=== PATIENT | female | born 1990 | race African-American/Black ===

== ENCOUNTER 2016-12-05 09:39 | Emergency (ER) | payer SELFPAY ==
--- NOTE | 2016-12-05 09:43 | Emergency Department Report ---
Chief Complaint: Vaginal Bleeding Stated Complaint: BLEEDING/ABD PAIN Time Seen by Provider: 12/05/16 09:40 - HPI History of Present Illness: PT states she passed a large clot this morning and she has had heavy vaginal bleeding. - ROS Review of Systems: + missed menstrual cycle irregular cycle x months + abd pain + nausea ( on Monday) - vomiting - Exam Physical Exam: pt looks well, non toxic abd soft, + llq abd tenderness MSE screening note: Focused history and physical exam performed. Due to findings the following was ordered: labs, us ED Disposition for MSE Condition: Stable
[2016-12-05 09:45] VITALS: BP 118/71
== END 2016-12-05 09:57 | disposition left against medical advice (07) ==
LOC: ED 09:39
DX: N93.9 Abnormal uterine and vaginal bleeding, unspecified (principal); R11.0 Nausea; R10.32 Left lower quadrant pain; Z53.21 Procedure and treatment not carried out due to patient leaving prior to being seen by health care provider

== ENCOUNTER 2019-10-29 00:02 | Outpatient (CLI) | payer SELFPAY ==
[2019-10-29 00:25] VITALS: BP 113/59
[2019-10-29] MEDS ORDERED: SODIUM CHLORIDE 0.9% 1000 ML 1,000 ML IV ONE (00:40)
[2019-10-29] MEDS ORDERED: LACTATED RINGERS 500 ML IV ONE (01:00)
[2019-10-29 01:36] LABS: Hematocrit 33.4 % (30.3-42.9); Hemoglobin 11.5 gm/dl (10.1-14.3); Mean Corpuscular HGB Conc 34 % (30-34); Mean Corpuscular Volume 94 fl (79-97); Platelet Count 153 K/mm3 (140-440); Red Blood Count 3.55 M/mm3 (3.65-5.03); Red Cell Distribution Width 14.1 % (13.2-15.2)
[2019-10-29 01:51] LABS: Bacteria,Urine 1+ /HPF (Negative); Bilirubin,Urine NEG (Negative); Blood,Urine NEG (Negative); Color,Urine Straw (Yellow); Protein,Urine <15 mg/dL mg/dL (Negative); Urobilinogen,Urine < 2.0 mg/dL (<2.0)
[2019-10-29 02:01] LABS: Alanine Aminotransferase 5 units/L (7-56); BUN/Creatinine Ratio 17; Blood Urea Nitrogen 5 mg/dL (7-17); Calcium 9.1 mg/dL (8.4-10.2)
[2019-10-29 02:02] LABS: Albumin 3.7 g/dL (3.9-5); Hemolysis Index 3
[2019-10-29] MEDS ORDERED: TERBUTALINE 1 MG/1 ML INJ ONE (02:28)
[2019-10-29] MEDS: TERBUTALINE 1 MG/1 ML INJ SUB-Q PRN ×2 (02:29→03:01)
[2019-10-29] MEDS ORDERED: POTASSIUM CHLORIDE ER 20 MEQ TAB PO ONE (02:37)
[2019-10-29] MEDS ORDERED: ONDANSETRON 4 MG/2 ML INJ IV ONE (03:45)
[2019-10-29] MEDS ORDERED: SODIUM CHLORIDE 0.9% 1000 ML 1,000 ML IV SCH (04:00)
--- NOTE | 2019-10-29 05:00 | Ultrasound Report ---
ULTRASOUND BIOPHYSICAL PROFILE INDICATION: well being. COMPARISON: None available. FINDINGS: breathing movement = 2 Gross body movement = 2 tone = 2 Qualitative amniotic fluid volume = 2 Total biophysical score = 8/8 Presentation is Cephalic. heart rate is 152 beats per minute. IMPRESSION: 1. biophysical profile = 8/8 2. There is a 5.4 cm right ovarian cyst. Signer Name: Pedro Wong MD Signed: 10/29/2019 4:55 AM Workstation Name: [id number]
== END 2019-10-29 06:24 | disposition home or self-care (01) ==
LOC: TRG 00:02 → APU 00:03 → TRG 06:24
PROVIDERS: ATTEND Obstetrics & Gynecology
DX: O62.9 Abnormality of forces of labor, unspecified (principal); O21.2 Late vomiting of pregnancy; O99.343 Other mental disorders complicating pregnancy, third trimester; F32.9 Major depressive disorder, single episode, unspecified; O34.83 Maternal care for other abnormalities of pelvic organs, third trimester; N83.201 Unspecified ovarian cyst, right side; Z3A.30 30 weeks gestation of pregnancy
CPT/HCPCS: 36415; 59025; 76819; 80053; 81001; 85027; 96361; 96372; 96374; J2405; J3105; J7030; 96360

== ENCOUNTER 2019-12-19 01:49 | Outpatient (CLI) | payer SELFPAY ==
[2019-12-19 02:04] VITALS: BP 120/58
== END 2019-12-19 02:27 | disposition home or self-care (01) ==
LOC: TRG 01:49
PROVIDERS: ATTEND Obstetrics & Gynecology
DX: O47.1 False labor at or after 37 completed weeks of gestation (principal); Z3A.37 37 weeks gestation of pregnancy
CPT/HCPCS: 59025

== ENCOUNTER 2019-12-22 21:13 | Inpatient (IN) | payer OTHER ==
[2019-12-22] MEDS ORDERED: MINERAL OIL 30 ML ORAL LIQD PO PRN (22:38)
[2019-12-22] MEDS ORDERED: AMPICILLIN/NS 2 GM/100 ML 2 GM/100 ML BAG IV ONE (22:38)
[2019-12-22] MEDS ORDERED: ePHEDrine SULFATE 50 MG/1 ML INJ IV PRN (22:38)
[2019-12-22] MEDS ORDERED: TERBUTALINE 1 MG/1 ML INJ SUB-Q PRN (22:38)
[2019-12-22] MEDS ORDERED: LIDOCAINE (2%) 20 MG/1 ML VIAL 20 ML MDV INFILTRATI ONE (22:48)
--- NOTE | 2019-12-22 22:50 | History and Physical Report ---
History of Present Illness Date of examination: 12/22/19 Date of admission: 12/22/2019 Chief complaint: Leaking of water. History of present illness: 29 year old presents complaining of leaking of clear fluid from vagina since around 8:00 PM tonight. Patient reports active movment. She reports contractions. Patient received care at [facility] and she brings records with her. LMP 03/30/19. EDC 01/04/2020. significant for the following: anemia (supplemented with iron), chlamydia (treated and cured during ), UTI (E. Coli, treated and cured), depression (on Zoloft), bilateral pyelectasis, 5 cm right ovarian cyst. labs are as follows: O+, antibody screen negative, rubella immune, hepatitis B surface antigen negative, HIV negative, RPR nonreactive, gonorrhea negative, chlamydia positive/negative, 1 hour sugar test 121, GBS positive. 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 denies: abnormal PAP smear, gonorrhea, hepatitis B, hepatitis C, herpes, HIV, syphilis, trichomonas Family/Genetic History: diabetes, other (Down Syndrome (paternal cousin)) Social history: , lives with family, full code. denies: smoking, alcohol abuse, prescription drug abuse, IV drug use - Obstetrical History Expected Date of Delivery: 01/04/20 Actual Gestation: 38 Week(s) 2 Day(s) : 2 Para: 1 Hx # Term Pregnancies: 1 Number of Pregnancies: 0 Spontaneous Abortions: 0 Induced : 0 Number of Living Children: 1 Medications and Allergies Allergies Allergy/AdvReac Type Severity Reaction Status Date / Time No Known Allergies Allergy Verified 12/05/16 09:46 Home Medications Medication Instructions Recorded Confirmed Last Taken Type Vit-Fe Fumar-FA [ 1 tab PO DAILY 10/29/19 10/29/19 1 Day Ago History Vitamin] ~10/28/19 Sertraline [Zoloft] 1 tab PO DAILY 10/29/19 10/29/19 1 Day Ago History ~10/28/19 Active Meds: Active Medications Ephedrine Sulfate (Ephedrine Sulfate) 10 mg IV Q2M PRN PRN Reason: Hypotension Fentanyl (Sublimaze) 100 mcg IV Q2H PRN PRN Reason: Pain,Severe (7-10) LABOR PAIN Oxytocin/Sodium Chloride (Pitocin/Ns 20 Unit/1000ml Drip) 20 units in 1,000 mls @ 125 mls/hr IV DIRECT DAVE Oxytocin/Sodium Chloride (Pitocin/Ns 30 Unit/500ml) 30 units in 500 mls @ 1 mls/hr IV TITR DAVE; Protocol Lactated Ringer's (Lactated Ringers) 1,000 mls @ 125 mls/hr IV DIRECT DAVE Ampicillin Sodium (Ampicillin/Ns 2 Gm/100 Ml) 2 gm in 100 mls @ 100 mls/hr IV ONCE ONE; Protocol Stop: 12/22/19 23:37 Ampicillin Sodium (Ampicillin/Ns 1 Gm/50 Ml) 1 gm in 50 mls @ 100 mls/hr IV Q4HR DAVE; Protocol Lidocaine (Xylocaine 2%) 20 ml INFILTRATI ONCE ONE Stop: 12/22/19 22:49 Mineral Oil (Mineral Oil) 30 ml PO QHS PRN PRN Reason: Constipation Terbutaline Sulfate (Brethine) 0.25 mg SUB-Q ONCE PRN PRN Reason: Hyperstimulation/Hypertonicity Review of Systems All systems: negative (leaking of water from vagina and contractions) - Vital Signs Vital signs: Vital Signs Pulse Pulse Ox 77 98 12/22/19 21:43 12/22/19 21:43 Temp Pulse Resp BP Pulse Ox 98.6 F 74 16 125/74 99 12/22/19 21:44 12/22/19 22:43 12/22/19 21:44 12/22/19 21:44 12/22/19 22:43 - Physical Exam Abdomen: Positive: normal appearance, soft. Negative: distention, tenderness, guarding, rigidity Genitourinary (Female): Positive: normal external genitalia, normal perenium. Negative: perineal/vulvar lesions (no lesions noted on careful exam with bright light upon admission) Vagina: Positive: other (+ pooling, + fern test) Uterus: Positive: enlarged. Negative: tender Anus/Rectum: Positive: normal perianal skin Extremities: Positive: normal. Negative: tenderness, edema - Obstetrical FHR: category 1 Uterine Contraction Monitor Mode: External Cervical Dilatation: 1 Cervical Effacement Percentage: 20 station: -3 Uterine Contraction Pattern: Irregular Uterine Contraction Intensity: Mild Results All other labs normal. Assessment and Plan A: at 38 weeks, 1 day gestation. Spontaneous rupture of membranes. GBS positive. P: Admit. EFM. GBS prophylaxis. Pitocin augmentation of labor if needed. Discussed with patient risks and benefits of Pitocin augmentation of labor. Patient consented to Pitocin augmentation of labor.
[2019-12-22] MEDS ORDERED: OXYTOCIN 20 UNIT/1000ML DRIP 20 UNITS/1,000 ML BAG IV SCH (23:00)
[2019-12-22] MEDS: LACTATED RINGERS 1,000 ML IV SCH (23:37)
[2019-12-23 01:46] LABS: Hematocrit 32.8 % (30.3-42.9); Hemoglobin 11.3 gm/dl (10.1-14.3); Mean Corpuscular HGB Conc 34 % (30-34); Mean Corpuscular Volume 92 fl (79-97); Platelet Count 155 K/mm3 (140-440); Red Blood Count 3.55 M/mm3 (3.65-5.03); Red Cell Distribution Width 13.4 % (13.2-15.2)
[2019-12-23] MEDS: OXYTOCIN DRIP 30 UNITS/500 ML BAG IV SCH ×8 (02:00→13:58)
[2019-12-23] MEDS: fentaNYL 100 MCG/2 ML INJ IV PRN ×3 (02:20→15:32)
--- NOTE | 2019-12-23 02:34 | Ultrasound Report ---
ULTRASOUND OBSTETRIC, 12/22/2019 CLINICAL INFORMATION/INDICATION: Evaluate presentation and placental location COMPARISON: Limited obstetrical ultrasound with [facility], 10/29/2019 FINDINGS: There is a single intrauterine . BPD = 8.5 cm = 34 weeks, 2 day(s). Head circumference = 32.3 cm = 36 weeks, 4 day(s). Abdominal circumference = 31.1 cm = 35 weeks, 0 day(s). Femur length = 6.8 cm = 34 weeks, 6 day(s). Overall estimated sonographic age = 35 weeks, 1 day(s). heart rate is 137 beats per minute. Estimated weight is 2582 grams. position is cephalic. Placenta is posterior, fundal and left lateral and grade 2 . The cervix appears closed and measures 3.4 cm Amniotic fluid volume appears decreased measuring 2.9 cm. Impression: 1. Single living intrauterine with estimated sonographic age of 35 weeks, 1 day(s). Signer Name: Adina Enamorado MD Signed: 12/23/2019 2:30 AM Workstation Name: [id number]
[2019-12-23] MEDS: AMPICILLIN/NS 1 GM/50 ML 1 GM/50 ML BAG IV SCH ×4 (04:15→14:00)
--- NOTE | 2019-12-23 04:43 | Event Note ---
Date: 12/23/19 Category 2 FHR tracing noted. No sentinel event. Reviewed FHR tracing for last [address] Barron who also reviewed FHR tracing for past 3 hours. Portions of the tracing are category 2 and portions of the tracing are category 1. Intermittent variable FHR decelerations and a few intermittent late FHR decelerations noted. Minimal to moderate variability. A brief period of mild FHR bradycardia noted. Now FHR baseline is 120 with moderate variability and no decelerations. Patient in in left lateral position. She has KRYSTLE of 2.9 cm. She is having contractions which are about every [address] Barron states OK to continue with labor and no further interventions needed at this time.
[2019-12-23] MEDS: LACTATED RINGERS 1,000 ML IV SCH ×4 (05:56→17:20)
--- NOTE | 2019-12-23 10:10 | Progress Note ---
Assessment and Plan - Patient Problems (1) SROM (spontaneous rupture of membranes) Current Visit: Yes Status: Acute Plan to address problem: Restart Pitocin @ 2mu/min, titrate as tolerated Pain meds as desired Anticipate Subjective - Subjective Date of service: 12/23/19 Principal diagnosis: SROM; 38 wks gestation Interval history: See admission H & P Patient reports: loss of fluid, movement normal, no new complaints, no vaginal bleeding Objective - Vital Signs Vital Signs: Vital Signs - 12hr 12/22/19 12/22/19 12/22/19 22:08 22:13 22:18 Temperature Pulse Rate 84 85 87 Respiratory Rate Blood Pressure Blood Pressure [Right] O2 Sat by Pulse 99 99 99 Oximetry 12/22/19 12/22/19 12/22/19 22:23 22:28 22:33 Temperature Pulse Rate 80 76 75 Respiratory Rate Blood Pressure Blood Pressure [Right] O2 Sat by Pulse 99 99 97 Oximetry 12/22/19 12/22/19 12/22/19 22:38 22:43 22:48 Temperature Pulse Rate 78 74 76 Respiratory Rate Blood Pressure Blood Pressure [Right] O2 Sat by Pulse 98 99 99 Oximetry 12/22/19 12/22/19 12/22/19 23:40 23:49 23:51 Temperature 98.3 F Pulse Rate 66 74 78 Respiratory 18 Rate Blood Pressure 112/56 Blood Pressure 112/56 [Right] O2 Sat by Pulse 98 98 Oximetry 12/22/19 12/23/19 12/23/19 23:56 00:01 00:06 Temperature Pulse Rate 71 80 75 Respiratory Rate Blood Pressure Blood Pressure [Right] O2 Sat by Pulse 99 98 98 Oximetry 12/23/19 12/23/19 12/23/19 00:11 00:16 00:21 Temperature Pulse Rate 74 74 78 Respiratory Rate Blood Pressure Blood Pressure [Right] O2 Sat by Pulse 99 98 98 Oximetry 12/23/19 12/23/19 12/23/19 00:26 00:31 00:37 Temperature Pulse Rate 71 77 60 Respiratory Rate Blood Pressure Blood Pressure [Right] O2 Sat by Pulse 97 98 98 Oximetry 12/23/19 12/23/19 12/23/19 00:42 00:47 00:52 Temperature Pulse Rate 67 74 74 Respiratory Rate Blood Pressure Blood Pressure [Right] O2 Sat by Pulse 98 99 97 Oximetry 12/23/19 12/23/19 12/23/19 00:57 01:02 01:07 Temperature Pulse Rate 74 68 70 Respiratory Rate Blood Pressure Blood Pressure [Right] O2 Sat by Pulse 98 97 97 Oximetry 12/23/19 12/23/19 12/23/19 01:12 01:17 01:22 Temperature Pulse Rate 81 90 73 Respiratory Rate Blood Pressure Blood Pressure [Right] O2 Sat by Pulse 100 100 100 Oximetry 12/23/19 12/23/19 12/23/19 01:27 01:32 01:37 Temperature Pulse Rate 72 65 62 Respiratory Rate Blood Pressure Blood Pressure [Right] O2 Sat by Pulse 100 100 100 Oximetry 12/23/19 12/23/19 12/23/19 01:42 01:47 01:52 Temperature Pulse Rate 67 66 70 Respiratory Rate Blood Pressure Blood Pressure [Right] O2 Sat by Pulse 100 100 100 Oximetry 12/23/19 12/23/19 12/23/19 01:57 02:02 02:10 Temperature Pulse Rate 65 77 80 Respiratory Rate Blood Pressure Blood Pressure [Right] O2 Sat by Pulse 100 100 98 Oximetry 12/23/19 12/23/19 12/23/19 02:15 02:20 02:23 Temperature Pulse Rate 78 77 70 Respiratory Rate Blood Pressure Blood Pressure [Right] O2 Sat by Pulse 97 99 86 Oximetry 12/23/19 12/23/19 12/23/19 02:25 02:30 02:35 Temperature Pulse Rate 80 80 74 Respiratory Rate Blood Pressure Blood Pressure [Right] O2 Sat by Pulse 96 93 94 Oximetry 12/23/19 12/23/19 12/23/19 02:39 02:40 02:45 Temperature Pulse Rate 82 69 72 Respiratory Rate Blood Pressure Blood Pressure [Right] O2 Sat by Pulse 85 99 99 Oximetry 12/23/19 12/23/19 12/23/19 02:50 02:55 03:00 Temperature Pulse Rate 64 62 66 Respiratory Rate Blood Pressure Blood Pressure [Right] O2 Sat by Pulse 99 99 99 Oximetry 12/23/19 12/23/19 12/23/19 03:05 03:10 03:15 Temperature Pulse Rate 65 75 73 Respiratory Rate Blood Pressure Blood Pressure [Right] O2 Sat by Pulse 99 100 99 Oximetry 12/23/19 12/23/19 12/23/19 03:20 03:25 03:30 Temperature Pulse Rate 61 60 60 Respiratory Rate Blood Pressure Blood Pressure [Right] O2 Sat by Pulse 99 99 99 Oximetry 12/23/19 12/23/19 12/23/19 03:35 03:40 03:45 Temperature Pulse Rate 61 61 55 L Respiratory Rate Blood Pressure Blood Pressure [Right] O2 Sat by Pulse 99 100 100 Oximetry 12/23/19 12/23/19 12/23/19 03:50 03:55 04:00 Temperature Pulse Rate 58 L 56 L 54 L Respiratory Rate Blood Pressure Blood Pressure [Right] O2 Sat by Pulse 100 100 100 Oximetry 12/23/19 12/23/19 12/23/19 04:05 04:10 04:15 Temperature Pulse Rate 54 L 54 L 66 Respiratory Rate Blood Pressure Blood Pressure [Right] O2 Sat by Pulse 100 100 100 Oximetry 12/23/19 12/23/19 12/23/19 04:20 04:25 04:30 Temperature Pulse Rate 67 56 L 53 L Respiratory Rate Blood Pressure Blood Pressure [Right] O2 Sat by Pulse 99 98 97 Oximetry 12/23/19 12/23/19 12/23/19 04:35 04:36 04:42 Temperature Pulse Rate 54 L 53 L 71 Respiratory Rate Blood Pressure 121/68 Blood Pressure [Right] O2 Sat by Pulse 100 98 Oximetry 12/23/19 12/23/19 12/23/19 04:47 04:52 04:57 Temperature 97.8 F Pulse Rate 67 58 L 68 Respiratory 16 Rate Blood Pressure Blood Pressure 121/86 [Right] O2 Sat by Pulse 98 100 100 Oximetry 12/23/19 12/23/19 12/23/19 05:02 05:07 05:12 Temperature Pulse Rate 74 81 77 Respiratory Rate Blood Pressure Blood Pressure [Right] O2 Sat by Pulse 100 100 100 Oximetry 12/23/19 12/23/19 12/23/19 05:17 05:22 05:27 Temperature Pulse Rate 62 60 74 Respiratory Rate Blood Pressure Blood Pressure [Right] O2 Sat by Pulse 100 100 100 Oximetry 12/23/19 12/23/19 12/23/19 05:32 05:37 05:42 Temperature Pulse Rate 77 71 76 Respiratory Rate Blood Pressure Blood Pressure [Right] O2 Sat by Pulse 100 100 100 Oximetry 08/24/20 08/24/20 08/24/20 05:52 05:57 06:02 Temperature Pulse Rate 68 64 68 Respiratory Rate Blood Pressure Blood Pressure [Right] O2 Sat by Pulse 100 100 100 Oximetry 12/23/19 12/23/19 12/23/19 06:07 06:12 06:17 Temperature Pulse Rate 56 L 60 59 L Respiratory Rate Blood Pressure Blood Pressure [Right] O2 Sat by Pulse 100 100 100 Oximetry 12/23/19 12/23/19 12/23/19 06:22 06:27 06:32 Temperature Pulse Rate 60 63 66 Respiratory Rate Blood Pressure Blood Pressure [Right] O2 Sat by Pulse 100 100 100 Oximetry 12/23/19 12/23/19 12/23/19 06:37 06:42 06:47 Temperature Pulse Rate 54 L 62 65 Respiratory Rate Blood Pressure 111/61 Blood Pressure [Right] O2 Sat by Pulse 100 100 100 Oximetry 12/23/19 12/23/19 12/23/19 06:52 06:57 07:02 Temperature Pulse Rate 55 L 57 L 56 L Respiratory Rate Blood Pressure Blood Pressure [Right] O2 Sat by Pulse 100 100 100 Oximetry 12/23/19 12/23/19 12/23/19 07:07 07:12 07:15 Temperature 97.8 F Pulse Rate 57 L 61 56 L Respiratory 17 Rate Blood Pressure 123/76 Blood Pressure 123/76 [Right] O2 Sat by Pulse 100 100 100 Oximetry 12/23/19 12/23/19 12/23/19 07:17 07:22 07:27 Temperature Pulse Rate 74 62 63 Respiratory Rate Blood Pressure Blood Pressure [Right] O2 Sat by Pulse 100 100 100 Oximetry 12/23/19 12/23/19 12/23/19 07:32 07:37 07:42 Temperature Pulse Rate 56 L 54 L 56 L Respiratory Rate Blood Pressure Blood Pressure [Right] O2 Sat by Pulse 100 100 100 Oximetry 12/23/19 12/23/19 12/23/19 07:47 07:52 07:57 Temperature Pulse Rate 57 L 67 61 Respiratory Rate Blood Pressure 116/65 Blood Pressure [Right] O2 Sat by Pulse 100 100 100 Oximetry 12/23/19 12/23/19 12/23/19 08:02 08:07 08:12 Temperature Pulse Rate 63 60 63 Respiratory Rate Blood Pressure Blood Pressure [Right] O2 Sat by Pulse 100 99 99 Oximetry 12/23/19 12/23/19 12/23/19 08:17 08:22 08:27 Temperature Pulse Rate 67 62 55 L Respiratory Rate Blood Pressure Blood Pressure [Right] O2 Sat by Pulse 99 100 100 Oximetry 12/23/19 12/23/19 12/23/19 08:32 08:37 08:42 Temperature Pulse Rate 61 64 55 L Respiratory Rate Blood Pressure Blood Pressure [Right] O2 Sat by Pulse 100 100 100 Oximetry 12/23/19 12/23/19 12/23/19 08:47 08:52 08:57 Temperature Pulse Rate 53 L 59 L 58 L Respiratory Rate Blood Pressure 104/59 Blood Pressure [Right] O2 Sat by Pulse 100 100 100 Oximetry 12/23/19 12/23/19 12/23/19 09:02 09:07 09:12 Temperature Pulse Rate 55 L 57 L 64 Respiratory Rate Blood Pressure Blood Pressure [Right] O2 Sat by Pulse 100 100 100 Oximetry 12/23/19 12/23/19 12/23/19 09:17 09:22 09:33 Temperature Pulse Rate 57 L 66 62 Respiratory Rate Blood Pressure Blood Pressure [Right] O2 Sat by Pulse 100 99 100 Oximetry 12/23/19 12/23/19 12/23/19 09:34 09:38 09:43 Temperature Pulse Rate 71 66 69 Respiratory Rate Blood Pressure 98/55 Blood Pressure [Right] O2 Sat by Pulse 100 100 Oximetry 12/23/19 12/23/19 12/23/19 09:48 09:49 09:53 Temperature Pulse Rate 62 59 L 66 Respiratory Rate Blood Pressure 116/55 Blood Pressure [Right] O2 Sat by Pulse 100 100 Oximetry 12/23/19 12/23/19 12/23/19 09:55 09:58 10:03 Temperature Pulse Rate 71 68 69 Respiratory Rate Blood Pressure 100/56 Blood Pressure [Right] O2 Sat by Pulse 100 100 Oximetry - Exam Breasts: deferred Cardiovascular: Regular rate Lungs: Normal air movement FHR: category 1 Uterine Contraction Monitor Mode: External Cervical Dilatation: 2 (per RN) Cervical Effacement Percentage: 50 (Pitocin restarted at 2mu/min) station: -3 Uterine Contraction Frequency (min): 5-7 Uterine Contraction Pattern: Irregular Uterine Tone Measurement Phase: Resting Uterine Contraction Intensity: Mild - Labs Labs: Abnormal Labs 12/23/19 00:43 RBC 3.55 L Laboratory Results - last 24 hr 12/23/19 12/23/19 00:43 Unknown WBC 7.7 RBC 3.55 L Hgb 11.3 Hct 32.8 MCV 92 MCH 32 MCHC 34 RDW 13.4 Plt Count 155 Blood Type O POSITIVE Antibody Screen Negative
[2019-12-23] MEDS ORDERED: DEXMEDETOMIDINE 200 MCG/2 ML VIAL IV ONE (16:36)
--- NOTE | 2019-12-23 16:53 | Anesthesia Day of Surgery ---
Anesthesia Day of Surgery - Day of Surgery Patient Examined: Yes Patient H&P Reviewed: Yes
--- NOTE | 2019-12-23 16:53 | Anesthesia Consultation ---
Anesthesia Consult and Med Hx Date of service: 12/23/19 - Airway Anesthetic Teeth Evaluation: Good ROM Head & Neck: Adequate Mental/Hyoid Distance: Adequate Mallampati Class: Class II Intubation Access Assessment: Good - Pulmonary Exam CTA: Yes - Cardiac Exam Cardiac Exam: RRR - Pre-Operative Health Status ASA Pre-Surgery Classification: ASA2, Emergency Proposed Anesthetic Plan: Epidural - Pulmonary Hx Asthma: No COPD: No Hx Pneumonia: No - Cardiovascular System Hx Hypertension: No - Central Nervous System Hx Seizures: No Hx Psychiatric Problems: Yes (DEPRESSION ON MEDS) - Endocrine Hx Renal Disease: Yes (UTI E. COLI 09/22) Hx End Stage Renal Disease: No Hx Hypothyroidism: No Hx Hyperthyroidism: No - Hematic Hx Anemia: Yes Hx Sickle Cell Disease: No - Other Systems Hx Alcohol Use: No
[2019-12-23] MEDS ORDERED: ePHEDrine SULFATE 50 MG/1 ML INJ IV PRN (16:57)
[2019-12-23] MEDS ORDERED: NALOXONE 2 MG/2 ML INJ IV PRN (16:57)
[2019-12-23] MEDS ORDERED: fentaNYL-BUPIV 2 MCG/ML-0.125% 200 MCG/100 ML BAG EPIDURAL SCH (17:00)
--- NOTE | 2019-12-23 17:12 | Progress Note ---
Assessment and Plan - Patient Problems (1) SROM (spontaneous rupture of membranes) Current Visit: Yes Status: Acute Plan to address problem: Continue Pitocin as tolerated Anticipate Subjective - Subjective Date of service: 12/23/19 Principal diagnosis: SROM; 38 wks gestation Interval history: See admission H & P Patient reports: loss of fluid, vaginal bleeding (some bloody show ), movement normal, contractions (better with epidural), no new complaints Objective - Vital Signs Vital Signs: Vital Signs - 12hr 12/23/19 12/23/19 12/23/19 05:07 05:12 05:17 Temperature Pulse Rate 81 77 62 Respiratory Rate Blood Pressure Blood Pressure [Right] O2 Sat by Pulse 100 100 100 Oximetry 12/23/19 12/23/19 12/23/19 05:22 05:27 05:32 Temperature Pulse Rate 60 74 77 Respiratory Rate Blood Pressure Blood Pressure [Right] O2 Sat by Pulse 100 100 100 Oximetry 12/23/19 12/23/19 12/23/19 05:37 05:42 05:52 Temperature Pulse Rate 71 76 68 Respiratory Rate Blood Pressure Blood Pressure [Right] O2 Sat by Pulse 100 100 100 Oximetry 12/23/19 12/23/19 12/23/19 05:57 06:02 06:07 Temperature Pulse Rate 64 68 56 L Respiratory Rate Blood Pressure Blood Pressure [Right] O2 Sat by Pulse 100 100 100 Oximetry 12/23/19 12/23/19 12/23/19 06:12 06:17 06:22 Temperature Pulse Rate 60 59 L 60 Respiratory Rate Blood Pressure Blood Pressure [Right] O2 Sat by Pulse 100 100 100 Oximetry 12/23/19 12/23/19 12/23/19 06:27 06:32 06:37 Temperature Pulse Rate 63 66 54 L Respiratory Rate Blood Pressure Blood Pressure [Right] O2 Sat by Pulse 100 100 100 Oximetry 12/23/19 12/23/19 12/23/19 06:42 06:47 06:52 Temperature Pulse Rate 62 65 55 L Respiratory Rate Blood Pressure 111/61 Blood Pressure [Right] O2 Sat by Pulse 100 100 100 Oximetry 12/23/19 12/23/19 12/23/19 06:57 07:02 07:07 Temperature Pulse Rate 57 L 56 L 57 L Respiratory Rate Blood Pressure Blood Pressure [Right] O2 Sat by Pulse 100 100 100 Oximetry 12/23/19 12/23/19 12/23/19 07:12 07:15 07:17 Temperature 97.8 F Pulse Rate 61 56 L 74 Respiratory 17 Rate Blood Pressure 123/76 Blood Pressure 123/76 [Right] O2 Sat by Pulse 100 100 100 Oximetry 12/23/19 12/23/19 12/23/19 07:22 07:27 07:32 Temperature Pulse Rate 62 63 56 L Respiratory Rate Blood Pressure Blood Pressure [Right] O2 Sat by Pulse 100 100 100 Oximetry 12/23/19 12/23/19 12/23/19 07:37 07:42 07:47 Temperature Pulse Rate 54 L 56 L 57 L Respiratory Rate Blood Pressure 116/65 Blood Pressure [Right] O2 Sat by Pulse 100 100 100 Oximetry 12/23/19 12/23/19 12/23/19 07:52 07:57 08:02 Temperature Pulse Rate 67 61 63 Respiratory Rate Blood Pressure Blood Pressure [Right] O2 Sat by Pulse 100 100 100 Oximetry 12/23/19 12/23/19 12/23/19 08:07 08:12 08:17 Temperature Pulse Rate 60 63 67 Respiratory Rate Blood Pressure Blood Pressure [Right] O2 Sat by Pulse 99 99 99 Oximetry 12/23/19 12/23/19 12/23/19 08:22 08:27 08:32 Temperature Pulse Rate 62 55 L 61 Respiratory Rate Blood Pressure Blood Pressure [Right] O2 Sat by Pulse 100 100 100 Oximetry 12/23/19 12/23/19 12/23/19 08:37 08:42 08:47 Temperature Pulse Rate 64 55 L 53 L Respiratory Rate Blood Pressure 104/59 Blood Pressure [Right] O2 Sat by Pulse 100 100 100 Oximetry 12/23/19 12/23/19 12/23/19 08:52 08:57 09:02 Temperature Pulse Rate 59 L 58 L 55 L Respiratory Rate Blood Pressure Blood Pressure [Right] O2 Sat by Pulse 100 100 100 Oximetry 12/23/19 12/23/19 12/23/19 09:07 09:12 09:17 Temperature Pulse Rate 57 L 64 57 L Respiratory Rate Blood Pressure Blood Pressure [Right] O2 Sat by Pulse 100 100 100 Oximetry 12/23/19 12/23/19 12/23/19 09:22 09:33 09:34 Temperature Pulse Rate 66 62 71 Respiratory Rate Blood Pressure 98/55 Blood Pressure [Right] O2 Sat by Pulse 99 100 Oximetry 12/23/19 12/23/19 12/23/19 09:38 09:43 09:48 Temperature Pulse Rate 66 69 62 Respiratory Rate Blood Pressure Blood Pressure [Right] O2 Sat by Pulse 100 100 100 Oximetry 12/23/19 12/23/19 12/23/19 09:49 09:53 09:55 Temperature Pulse Rate 59 L 66 71 Respiratory Rate Blood Pressure 116/55 100/56 Blood Pressure [Right] O2 Sat by Pulse 100 Oximetry 12/23/19 12/23/19 12/23/19 09:58 10:03 10:08 Temperature Pulse Rate 68 69 68 Respiratory Rate Blood Pressure Blood Pressure [Right] O2 Sat by Pulse 100 100 100 Oximetry 12/23/19 12/23/19 12/23/19 10:13 10:18 10:23 Temperature Pulse Rate 63 66 70 Respiratory Rate Blood Pressure Blood Pressure [Right] O2 Sat by Pulse 100 100 100 Oximetry 12/23/19 12/23/19 12/23/19 10:26 10:28 10:33 Temperature Pulse Rate 75 76 74 Respiratory Rate Blood Pressure 114/64 Blood Pressure [Right] O2 Sat by Pulse 98 100 Oximetry 12/23/19 12/23/19 12/23/19 10:38 10:43 10:48 Temperature Pulse Rate 72 64 64 Respiratory Rate Blood Pressure Blood Pressure [Right] O2 Sat by Pulse 100 100 100 Oximetry 12/23/19 12/23/19 12/23/19 10:53 10:56 10:58 Temperature Pulse Rate 64 63 64 Respiratory Rate Blood Pressure 104/55 Blood Pressure [Right] O2 Sat by Pulse 100 100 Oximetry 12/23/19 12/23/19 12/23/19 11:03 11:07 11:08 Temperature Pulse Rate 69 68 68 Respiratory Rate Blood Pressure 108/60 Blood Pressure [Right] O2 Sat by Pulse 100 100 Oximetry 12/23/19 12/23/19 12/23/19 11:13 11:18 11:23 Temperature Pulse Rate 65 71 69 Respiratory Rate Blood Pressure Blood Pressure [Right] O2 Sat by Pulse 100 100 100 Oximetry 12/23/19 12/23/19 12/23/19 11:25 11:28 11:33 Temperature Pulse Rate 86 70 66 Respiratory Rate Blood Pressure 108/54 Blood Pressure [Right] O2 Sat by Pulse 100 100 Oximetry 12/23/19 12/23/19 12/23/19 11:38 11:45 11:50 Temperature Pulse Rate 72 71 67 Respiratory Rate Blood Pressure Blood Pressure [Right] O2 Sat by Pulse 100 100 100 Oximetry 12/23/19 12/23/19 12/23/19 11:55 12:00 12:05 Temperature Pulse Rate 68 66 66 Respiratory Rate Blood Pressure 111/68 Blood Pressure [Right] O2 Sat by Pulse 99 98 99 Oximetry 12/23/19 12/23/19 12/23/19 12:10 12:15 12:20 Temperature Pulse Rate 67 64 64 Respiratory Rate Blood Pressure Blood Pressure [Right] O2 Sat by Pulse 98 99 98 Oximetry 12/23/19 12/23/19 12/23/19 12:25 12:30 12:35 Temperature Pulse Rate 78 64 58 L Respiratory Rate Blood Pressure 119/66 Blood Pressure [Right] O2 Sat by Pulse 99 98 99 Oximetry 12/23/19 12/23/19 12/23/19 12:40 12:45 12:50 Temperature Pulse Rate 67 81 77 Respiratory Rate Blood Pressure Blood Pressure [Right] O2 Sat by Pulse 99 97 97 Oximetry 12/23/19 12/23/19 12/23/19 12:55 12:57 13:00 Temperature Pulse Rate 70 66 64 Respiratory Rate Blood Pressure 111/65 Blood Pressure [Right] O2 Sat by Pulse 98 99 Oximetry 12/23/19 12/23/19 12/23/19 13:04 13:05 13:14 Temperature 98.2 F Pulse Rate 62 58 L 63 Respiratory 17 Rate Blood Pressure Blood Pressure 111/65 [Right] O2 Sat by Pulse 99 98 100 Oximetry 12/23/19 12/23/19 12/23/19 13:19 13:21 13:24 Temperature Pulse Rate 71 58 L 63 Respiratory Rate Blood Pressure 113/69 Blood Pressure [Right] O2 Sat by Pulse 100 100 Oximetry 12/23/19 12/23/19 12/23/19 13:25 13:29 13:34 Temperature Pulse Rate 67 62 63 Respiratory Rate Blood Pressure 117/72 Blood Pressure [Right] O2 Sat by Pulse 100 100 Oximetry 12/23/19 12/23/19 12/23/19 13:36 13:39 13:44 Temperature Pulse Rate 64 59 L Respiratory 16 Rate Blood Pressure Blood Pressure [Right] O2 Sat by Pulse 100 100 Oximetry 12/23/19 12/23/19 12/23/19 13:49 13:54 13:55 Temperature Pulse Rate 66 61 56 L Respiratory Rate Blood Pressure 119/69 Blood Pressure [Right] O2 Sat by Pulse 100 99 Oximetry 12/23/19 12/23/19 12/23/19 13:59 14:04 14:09 Temperature Pulse Rate 57 L 59 L 61 Respiratory Rate Blood Pressure Blood Pressure [Right] O2 Sat by Pulse 100 100 100 Oximetry 12/23/19 12/23/19 12/23/19 14:14 14:19 14:24 Temperature Pulse Rate 54 L 52 L 61 Respiratory Rate Blood Pressure Blood Pressure [Right] O2 Sat by Pulse 100 100 100 Oximetry 12/23/19 12/23/19 12/23/19 14:26 14:29 14:34 Temperature Pulse Rate 54 L 53 L 52 L Respiratory Rate Blood Pressure 135/74 Blood Pressure [Right] O2 Sat by Pulse 100 100 Oximetry 12/23/19 12/23/19 12/23/19 14:39 14:44 14:49 Temperature Pulse Rate 68 60 65 Respiratory Rate Blood Pressure Blood Pressure [Right] O2 Sat by Pulse 100 100 100 Oximetry 12/23/19 12/23/19 12/23/19 14:55 15:17 15:22 Temperature Pulse Rate 57 L 79 87 Respiratory Rate Blood Pressure 129/60 Blood Pressure [Right] O2 Sat by Pulse 100 100 Oximetry 12/23/19 12/23/19 12/23/19 15:26 15:27 15:32 Temperature Pulse Rate 78 57 L 64 Respiratory 16 Rate Blood Pressure 161/88 Blood Pressure [Right] O2 Sat by Pulse 100 100 Oximetry 12/23/19 12/23/19 12/23/19 15:37 15:42 15:47 Temperature Pulse Rate 76 70 58 L Respiratory Rate Blood Pressure Blood Pressure [Right] O2 Sat by Pulse 97 99 97 Oximetry 12/23/19 12/23/19 12/23/19 15:52 15:55 15:57 Temperature Pulse Rate 76 70 63 Respiratory Rate Blood Pressure 115/56 Blood Pressure [Right] O2 Sat by Pulse 100 100 Oximetry 12/23/19 12/23/19 12/23/19 16:02 16:07 16:12 Temperature Pulse Rate 63 64 84 Respiratory Rate Blood Pressure Blood Pressure [Right] O2 Sat by Pulse 99 99 99 Oximetry 12/23/19 12/23/19 12/23/19 16:17 16:22 16:25 Temperature Pulse Rate 76 87 83 Respiratory Rate Blood Pressure 141/70 Blood Pressure [Right] O2 Sat by Pulse 99 99 Oximetry 12/23/19 12/23/19 12/23/19 16:27 16:32 16:34 Temperature Pulse Rate 59 L 74 72 Respiratory Rate Blood Pressure Blood Pressure [Right] O2 Sat by Pulse 99 100 79 L Oximetry 12/23/19 12/23/19 12/23/19 16:37 16:42 16:45 Temperature Pulse Rate 65 63 59 L Respiratory Rate Blood Pressure 128/76 Blood Pressure [Right] O2 Sat by Pulse 96 98 Oximetry 12/23/19 12/23/19 12/23/19 16:47 16:48 16:50 Temperature Pulse Rate 63 62 75 Respiratory Rate Blood Pressure 141/75 126/60 Blood Pressure [Right] O2 Sat by Pulse 99 Oximetry 12/23/19 12/23/19 12/23/19 16:51 16:52 16:53 Temperature Pulse Rate 59 L 62 57 L Respiratory Rate Blood Pressure 127/56 127/60 Blood Pressure [Right] O2 Sat by Pulse 100 Oximetry 12/23/19 12/23/19 12/23/19 16:55 16:57 16:59 Temperature Pulse Rate 53 L 68 76 Respiratory Rate Blood Pressure 126/62 142/68 130/65 Blood Pressure [Right] O2 Sat by Pulse 100 Oximetry 12/23/19 17:02 Temperature Pulse Rate 64 Respiratory Rate Blood Pressure Blood Pressure [Right] O2 Sat by Pulse 97 Oximetry - Exam Breasts: deferred Cardiovascular: Regular rate Lungs: Normal air movement FHR: category 1 Uterine Contraction Monitor Mode: External Cervical Dilatation: 9 (vertex) Cervical Effacement Percentage: 90 station: +1 Uterine Contraction Frequency (min): 2-3 Uterine Contraction Pattern: Irregular Uterine Tone Measurement Phase: Resting Uterine Contraction Intensity: Strong/Firm - Labs Labs: Abnormal Labs 12/23/19 00:43 RBC 3.55 L Laboratory Results - last 24 hr 12/23/19 12/23/19 00:43 Unknown WBC 7.7 RBC 3.55 L Hgb 11.3 Hct 32.8 MCV 92 MCH 32 MCHC 34 RDW 13.4 Plt Count 155 Blood Type O POSITIVE Antibody Screen Negative
--- NOTE | 2019-12-23 18:14 | Procedure Note ---
OB Delivery Note - Delivery Date of Delivery: 12/23/19 Surgeon: JUN ALDRIDGE JR Estimated blood loss: 200cc - Vaginal Delivery presentation: vertex Delivery position: OA Intrapartum events: none Delivery induction: oxytocin Delivery augmentation: pitocin Delivery monitor: external FHT Route of delivery: Delivery placenta: spontaneous Delivery cord: nuchal cord Episiotomy: none Delivery laceration: 1st degree, vaginal side wall Delivery repair: other (perineal and bilateral abrasions only, not repaired) Anesthesia: epidural Delivery comments: , 200cc viable, crying boy, 8/9 APGARS, 2380g. Nuchal x 1. Perineal and bilateral labial abrasions only, not reparied. To with mom. No immediately complications. - A at 1 minute: 8 at 5 minutes: 9 Infant Gender: Male
[2019-12-23] MEDS ORDERED: MAGNESIUM HYDROXIDE (MOM) ORAL LIQD UDC PO PRN (18:15)
[2019-12-23] MEDS ORDERED: LANOLIN/ZINC/DIMETHICONE (LANSINOH) 7 GM TP PRN (18:15)
[2019-12-23] MEDS ORDERED: PROMETHAZINE 25 MG RECT SUPP PR PRN (18:15)
[2019-12-23] MEDS ORDERED: diphenhydrAMINE 25 MG CAP PO PRN (18:15)
[2019-12-23] MEDS ORDERED: ACETAMINOPHEN 325 MG TAB PO PRN (18:15)
[2019-12-23] MEDS ORDERED: WITCH HAZEL/ GLYCERIN PAD TP PRN (18:15)
[2019-12-23] MEDS ORDERED: oxyCODONE /ACETAMINOPHEN 5-325MG TAB PO PRN (18:15)
[2019-12-23] MEDS ORDERED: ONDANSETRON 4 MG/2 ML INJ IV PRN (18:15)
[2019-12-23] MEDS ORDERED: PROMETHAZINE 25 MG TAB PO PRN (18:15)
[2019-12-23] MEDS: IBUPROFEN 600 MG TAB PO SCH (20:07)
[2019-12-24] MEDS: IBUPROFEN 600 MG TAB PO SCH ×3 (04:09→17:11)
[2019-12-24 06:30] LABS: Hematocrit 29.9 % (30.3-42.9); Hemoglobin 10.5 gm/dl (10.1-14.3)
--- NOTE | 2019-12-24 10:53 | Progress Note ---
Assessment and Plan - Patient Problems (1) Status post normal vaginal delivery Current Visit: Yes Status: Acute Plan to address problem: Continue routine PP orders Anticipate d/c home tomorrow F/U at office in 6 wks for routine PP visit (2) Anemia Current Visit: Yes Status: Acute Qualifiers: Anemia type: other cause Other causes of anemia: acute posthemorrhagic Qualified Code(s): D62 - Acute posthemorrhagic anemia Plan to address problem: Asymptomatic Increase iron rich foods into diet Subjective - Subjective Date of service: 12/24/19 Principal diagnosis: S/P ; Anemia Interval history: See admission H & P Patient reports: appetite normal, voiding normally, pain well controlled, flatus, ambulating normally : doing well, bottle feeding Objective - Vital Signs Latest vital signs: Vital Signs Temp Pulse Resp BP BP Pulse Ox 12/24/19 07:34 99.2 F 88 18 102/51 97 12/24/19 05:51 98.7 F 77 20 95/53 97 12/24/19 04:09 20 12/23/19 20:50 97.5 F L 53 L 18 108/64 100 12/23/19 20:01 57 L 100 12/23/19 19:56 71 100 12/23/19 19:55 52 L 122/73 12/23/19 19:51 50 L 100 12/23/19 19:46 54 L 100 12/23/19 19:41 75 121/84 100 12/23/19 19:35 67 100 12/23/19 19:30 51 L 100 12/23/19 19:25 46 L 100 12/23/19 19:20 60 100 12/23/19 19:15 52 L 100 12/23/19 19:10 50 L 114/78 99 12/23/19 19:05 97.8 F 51 L 17 100 12/23/19 19:00 47 L 97 12/23/19 18:55 56 L 109/72 99 12/23/19 18:50 52 L 100 12/23/19 18:45 50 L 100 12/23/19 18:40 51 L 16 112/67 112/67 100 12/23/19 18:35 53 L 99 12/23/19 18:30 49 L 98 12/23/19 18:25 54 L 16 105/62 105/62 99 12/23/19 18:20 59 L 98 12/23/19 18:15 53 L 99 12/23/19 18:10 97.8 F 52 L 16 104/56 104/56 99 12/23/19 18:05 54 L 111/54 12/23/19 18:01 58 L 116/66 12/23/19 17:55 57 L 113/64 12/23/19 17:52 72 100 12/23/19 17:50 67 112/63 12/23/19 17:47 54 L 100 12/23/19 17:45 55 L 117/66 12/23/19 17:42 52 L 100 12/23/19 17:39 49 L 115/69 12/23/19 17:37 51 L 119/68 99 12/23/19 17:35 47 L 120/66 12/23/19 17:33 51 L 123/64 12/23/19 17:32 54 L 100 12/23/19 17:31 52 L 125/64 12/23/19 17:29 49 L 121/58 12/23/19 17:27 53 L 125/63 100 12/23/19 17:25 50 L 125/63 12/23/19 17:23 51 L 120/64 12/23/19 17:22 68 100 12/23/19 17:21 55 L 122/65 12/23/19 17:19 53 L 124/76 12/23/19 17:17 57 L 125/75 100 12/23/19 17:15 58 L 128/74 12/23/19 17:13 56 L 132/71 12/23/19 17:12 58 L 100 12/23/19 17:11 57 L 116/64 12/23/19 17:10 55 L 123/71 12/23/19 17:07 55 L 100 12/23/19 17:02 64 97 12/23/19 16:59 76 130/65 12/23/19 16:57 68 142/68 100 12/23/19 16:55 53 L 126/62 12/23/19 16:53 57 L 127/60 12/23/19 16:52 62 100 12/23/19 16:51 59 L 127/56 12/23/19 16:50 75 126/60 12/23/19 16:48 62 141/75 12/23/19 16:47 63 99 12/23/19 16:45 59 L 128/76 12/23/19 16:42 63 98 12/23/19 16:37 65 96 12/23/19 16:34 72 79 L 12/23/19 16:32 74 100 12/23/19 16:27 59 L 99 12/23/19 16:25 83 141/70 12/23/19 16:22 87 99 12/23/19 16:17 76 99 12/23/19 16:12 84 99 12/23/19 16:07 64 99 12/23/19 16:02 63 99 12/23/19 15:57 63 100 12/23/19 15:55 70 115/56 12/23/19 15:52 76 100 12/23/19 15:47 58 L 97 12/23/19 15:42 70 99 12/23/19 15:37 76 97 12/23/19 15:32 64 16 100 12/23/19 15:27 57 L 100 12/23/19 15:26 78 161/88 12/23/19 15:22 87 100 12/23/19 15:17 79 100 12/23/19 14:55 57 L 129/60 12/23/19 14:49 65 100 12/23/19 14:44 60 100 12/23/19 14:39 68 100 12/23/19 14:34 52 L 100 12/23/19 14:29 53 L 100 12/23/19 14:26 54 L 135/74 12/23/19 14:24 61 100 12/23/19 14:19 52 L 100 12/23/19 14:14 54 L 100 12/23/19 14:09 61 100 12/23/19 14:04 59 L 100 12/23/19 13:59 57 L 100 12/23/19 13:55 56 L 119/69 12/23/19 13:54 61 99 12/23/19 13:49 66 100 12/23/19 13:44 59 L 100 12/23/19 13:39 64 100 12/23/19 13:36 16 12/23/19 13:34 63 100 12/23/19 13:29 62 100 12/23/19 13:25 67 117/72 08/24/20 13:24 63 100 12/23/19 13:21 58 L 113/69 12/23/19 13:19 71 100 12/23/19 13:14 63 100 12/23/19 13:05 58 L 98 12/23/19 13:04 98.2 F 62 17 111/65 99 12/23/19 13:00 64 99 12/23/19 12:57 66 111/65 12/23/19 12:55 70 98 12/23/19 12:50 77 97 12/23/19 12:45 81 97 12/23/19 12:40 67 99 12/23/19 12:35 58 L 99 12/23/19 12:30 64 98 12/23/19 12:25 78 119/66 99 12/23/19 12:20 64 98 12/23/19 12:15 64 99 12/23/19 12:10 67 98 12/23/19 12:05 66 99 12/23/19 12:00 66 98 12/23/19 11:55 68 111/68 99 12/23/19 11:50 67 100 12/23/19 11:45 71 100 12/23/19 11:38 72 100 12/23/19 11:33 66 100 12/23/19 11:28 70 100 12/23/19 11:25 86 108/54 12/23/19 11:23 69 100 12/23/19 11:18 71 100 12/23/19 11:13 65 100 12/23/19 11:08 68 100 12/23/19 11:07 68 108/60 12/23/19 11:03 69 100 12/23/19 10:58 64 100 12/23/19 10:56 63 104/55 12/23/19 10:53 64 100 Intake and Output 12/23/19 12/24/19 12/24/19 23:59 07:59 15:59 Intake Total 2426.250 Output Total 400 Balance 2025.250 Intake: IV 2306.250 Lactated Ringers 1,000 ml 2306.250 @ 125 mls/hr IV DIRECT DAVE Rx#:[id number] Oral 120 Output: Urine 400 Void 400 Other: Total, Intake Amount 120 Total, Output Amount 400 Estimated Blood Loss 200 - Exam Breasts: Present: normal Cardiovascular: Present: Regular rate Lungs: Present: Clear to auscultation Uterus: Present: firm, fundal height below umbilicus (U-2) Extremities: Present: normal Deep Tendon Reflex Grade: Normal +2 - Labs Labs: Abnormal lab results 12/24/19 Range/Units 06:12 Hct 29.9 L (30.3-42.9) %
--- NOTE | 2019-12-24 10:55 | Discharge Summary ---
Providers - Providers Date of Admission: 12/22/19 22:38 Date of discharge: 12/25/19 (0800) Attending physician: LAUREN AMADOR MD Primary care physician: LAUREN AMADOR MD Hospitalization Reason for admission: rupture of membranes Delivery: Episiotomy: none Laceration: none, 1st degree (healing as expected) Other procedures: none complications: none [place] baby: male Hospital course: See admission H & P; OB delivery note and PP progress notes Condition at discharge: Stable Disposition: DC-01 TO HOME OR SELFCARE - Discharge Diagnoses (1) Status post normal vaginal delivery Status: Acute (2) Anemia Status: Acute Qualifiers: Anemia type: other cause Other causes of anemia: acute posthemorrhagic Qualified Code(s): D62 - Acute posthemorrhagic anemia Plan - Provider Discharge Summary Activity: routine, no sex for 6 weeks, no heavy lifting 4 weeks, no strenuous exercise Diet: other (Iron rich diet) Instructions: routine Additional instructions: [] Smoking cessation referral if applicable(refer to patient education folder for contact #) [] Refer to [facility]'s [facility] Booklet Call your doctor immediately for: * Fever > 100.5 * Heavy vaginal bleeding ( >1 pad per hour) * Severe persistent headache * Shortness of breath * Reddened, hot, painful area to leg or breast * Drainage or odor from incision. * Keep vaginal laceration site clean and dry at all times and follow doctor's instructions regarding bathing/showering - Follow up plan Follow up: LAUREN AMADOR MD [Primary Care Provider] - 6 Weeks
--- NOTE | 2019-12-24 20:19 | Post Anesthesia Evaluation ---
- Post Anesthesia Evaluation Patient Participated: Yes Airway Patent: Yes Stable Respiratory Function: Yes Nausea/Vomiting: No Temp > 96.8F: Yes Pain Manageable: Yes Adequeate Hydration: Yes Anesthesia Complications: No Block Receding Appropriately: Yes
[2019-12-25 17:28] VITALS: BP 117/62
== END 2019-12-25 18:15 | disposition home or self-care (01) | DRG 806 ==
LOC: TRG 21:13 → APU 21:20 → TRG 22:38 → LD 22:38 → OB 12-23 20:44
PROVIDERS: ADMIT Obstetrics & Gynecology; ATTEND Obstetrics & Gynecology
PROC: 10E0XZZ Delivery of Products of Conception, External Approach (ICD-10-PCS; principal; 2019-12-23)
PROC: 3E0R3BZ Introduction of Anesthetic Agent into Spinal Canal, Percutaneous Approach (ICD-10-PCS; 2019-12-23)
PROC: 00HU33Z Insertion of Infusion Device into Spinal Canal, Percutaneous Approach (ICD-10-PCS; 2019-12-23)
PROC: 3E033VJ Introduction of Other Hormone into Peripheral Vein, Percutaneous Approach (ICD-10-PCS; 2019-12-23)
DX: O99.824 Streptococcus B carrier state complicating childbirth (principal); D62 Acute posthemorrhagic anemia; Z37.0 Single live birth; Z3A.38 38 weeks gestation of pregnancy; O90.81 Anemia of the puerperium; Z83.3 Family history of diabetes mellitus; O99.344 Other mental disorders complicating childbirth; F32.9 Major depressive disorder, single episode, unspecified; O69.81X0 Labor and delivery complicated by cord around neck, without compression, not applicable or unspecified; O70.0 First degree perineal laceration during delivery
CPT/HCPCS: 36415; 76816; 85014; 85018; 85027; 86850; 86900; 86901; G0378; J0290; J2590; J3010; J3490; J7120